=== PATIENT | male | born 1970 | race Caucasian/White ===

== ENCOUNTER → 2017-01-05 | Outpatient (CLI) | payer OTHER ==
[~2017-01-05] MED LIST: ALLE25CA OR; ATEN25TA PO; FLEXERIL OR; GEMF600T PO; LOSA100T36 PO; TYLENOL #3 OR; VOLT1GEL EX
[2017-01-05 17:33] LABS: ANION GAP 8 MEQ/L (8-16); BLOOD UREA NITROGEN 12 MG/DL (7-18); CARBON DIOXIDE LEVEL 26 MEQ/L (21-32); CHLORIDE LEVEL 107 MEQ/L (98-107); CREATININE FOR GFR 1.03 MG/DL (0.70-1.30); GLOMERULAR FILTRATION RATE > 60.0 (>60); GLUCOSE, FASTING 104 MG/DL (70-105); SODIUM LEVEL 141 MEQ/L (136-145)
== END ==
LOC: M LAB 16:27
PROVIDERS: ATTEND Nurse Practitioner Family
DX: Z01.812 Encounter for preprocedural laboratory examination (principal)

== ENCOUNTER 2017-01-14 20:51 | Emergency (ER) | payer OTHER ==
[~2017-01-14] VITALS: Ht 175.3 cm; Wt 96.6 kg
[2017-01-14 20:51] VITALS: BP 162/105
[~2017-01-14 20:51] MED LIST changes: -ACETAMINOPH W/CODEINE #3 TAB UD PO PRN; -CIPRODEX OTIC SUSP 7.5ML As Ordered ONE; -EPINEPHrine 1MG/ML INJ 30ML MD-VIAL As Ordered ONE; -GLYCOPYRROLATE INJ 0.2 MG/ML 2 ML VIAL As Ordered ONE; -HYDROmorphone HCL 2 MG/ML 1ML VIAL (J1170) As Ordered ONE; -LIDOCAINE 2% INJ 100 MG/5 ML SDV (FOR ANES.) As Ordered ONE; -LIDOCAINE W/EPINEPHRINE 1% 20ML VIAL As Ordered ONE; -LR 1,000 ML IV SCH; -MEPERIDINE INJ 25 MG/ML VIAL (J2175) IV PRN; -MIDAZOLAM INJ 2 MG/2 ML VIAL (J2250) As Ordered ONE; -MORPHINE 10 MG/ML 1ML VIAL IV PRN; -ONDANSETRON 4MG/2ML VIAL (J2405) IV PRN; -PERCOCET 5MG/325MG TAB PO PRN; -PHENYLEPHRINE INJ 10MG/ML VIAL (J2370) As Ordered ONE; -PHENYLephrine HCL 500 MCG/5 ML (100MCG/ML) SYRINGE (J2370) As Ordered ONE; -PROPOFOL 200 MG/20 ML VIAL As Ordered ONE; -REMIFENTANIL 1MG 3ML VIAL As Ordered ONE; -ROCURONIUM BROMIDE 50 MG/5 ML VIAL As Ordered ONE; -SEVOFLURANE INHAL SOLN 250 ML BTL As Ordered ONE; -dexameTHASONE 4 MG/ML 1ML VIAL (J1100) As Ordered ONE; -diphenhydrAMINE INJ 50MG/ML VIAL (J1200) IV PRN; -ePHEDrine SULFATE 25 MG/5 ML(5MG/ML) SYRINGE As Ordered ONE; -fentaNYL 100 MCG/2 ML INJECTION (J3010) IV PRN; -fentaNYL 250 MCG/5 ML INJECTION (J3010) As Ordered ONE
== END 2017-01-14 21:38 | disposition home or self-care (01) ==
LOC: M ED 21:12
DX: H95.51 Postprocedural hematoma of ear and mastoid process following a procedure on the ear and mastoid process (principal); I10 Essential (primary) hypertension; F17.210 Nicotine dependence, cigarettes, uncomplicated; J30.81 Allergic rhinitis due to animal (cat) (dog) hair and dander; Z88.6 Allergy status to analgesic agent; Z79.899 Other long term (current) drug therapy

== ENCOUNTER → 2017-01-14 | Day surgery (SDC) | payer OTHER ==
[~2017-01-14] VITALS: Ht 175.3 cm; Wt 97.5 kg
[~2017-01-14] MED LIST changes: +ACETAMINOPH W/CODEINE #3 TAB UD PO PRN; +ATOR40TA PO; +CIPRODEX OTIC SUSP 7.5ML As Ordered ONE; +CYCL10TA PO; +EPINEPHrine 1MG/ML INJ 30ML MD-VIAL As Ordered ONE; +GLYCOPYRROLATE INJ 0.2 MG/ML 2 ML VIAL As Ordered ONE; +HYDROmorphone HCL 2 MG/ML 1ML VIAL (J1170) As Ordered ONE; +LIDOCAINE 2% INJ 100 MG/5 ML SDV (FOR ANES.) As Ordered ONE; +LIDOCAINE W/EPINEPHRINE 1% 20ML VIAL As Ordered ONE; +LR 1,000 ML IV SCH; +MEPERIDINE INJ 25 MG/ML VIAL (J2175) IV PRN; +MIDAZOLAM INJ 2 MG/2 ML VIAL (J2250) As Ordered ONE; +MORPHINE 10 MG/ML 1ML VIAL IV PRN; +ONDANSETRON 4MG/2ML VIAL (J2405) IV PRN; +PERCOCET 5MG/325MG TAB PO PRN; +PHENYLEPHRINE INJ 10MG/ML VIAL (J2370) As Ordered ONE; +PHENYLephrine HCL 500 MCG/5 ML (100MCG/ML) SYRINGE (J2370) As Ordered ONE; +PROPOFOL 200 MG/20 ML VIAL As Ordered ONE; +REMIFENTANIL 1MG 3ML VIAL As Ordered ONE; +ROCURONIUM BROMIDE 50 MG/5 ML VIAL As Ordered ONE; +SEVOFLURANE INHAL SOLN 250 ML BTL As Ordered ONE; +dexameTHASONE 4 MG/ML 1ML VIAL (J1100) As Ordered ONE; +diphenhydrAMINE INJ 50MG/ML VIAL (J1200) IV PRN; +ePHEDrine SULFATE 25 MG/5 ML(5MG/ML) SYRINGE As Ordered ONE; +fentaNYL 100 MCG/2 ML INJECTION (J3010) IV PRN; +fentaNYL 250 MCG/5 ML INJECTION (J3010) As Ordered ONE
[2017-01-14 18:00] VITALS: BP 116/74
--- NOTE | 2017-01-15 00:31 | RO ---
DATE OF PROCEDURE: 01/14/2017 PREPROCEDURE DIAGNOSIS: Chronic left otitis media with cholesteatoma. POSTPROCEDURE DIAGNOSIS: Chronic left otitis media with cholesteatoma. PROCEDURE: Left tympanomastoidectomy with facial nerve monitor. SURGEON: Dr. Rian Garcia PROJECT FINANCIAL ANALYST: ANESTHESIA: FINDINGS: There was cholesteatoma, which was involving the posterior half of the tympanum all the way from the area of the incus all the way down to the floor of the tympanic space posteriorly. Anteriorly, it was clear. Malleus was clear. Stapes superstructure was intact. There was shortening, almost no long process, of incus. Incus was removed during the procedure. Facial nerve was monitored during the procedure, and it was intact and stimulated at the end of the procedure. DESCRIPTION OF PROCEDURE: Under general anesthesia with the patient intubated, the patient was prepped and draped in the usual manner. I cleaned the ear with Betadine and saline. There was a slight retraction in the pars flaccida region. I infiltrated the ear with the lidocaine with epinephrine. I made a posterior tympanotomy incision, then I lay tissue in the middle ear. The above findings were seen and the middle ear filled with cholesteatoma posteriorly. So, I made medial incisions and dissected the tissues posteriorly. Then, I made a postauricular incision down to the mastoid bone. Temporalis fascia was harvested. Once this was done, then I drilled down into the mastoid bone. Because of the extent of the cholesteatoma, I elected to take the canal wall down. So, I drilled down into the mastoid. The mastoid was free of disease. I then identified the horizontal semicircular canal and the tympanic plate. I then removed the posterior part of the canal wall and then identified the facial nerve in the middle ear space. I drilled down to the facial nerve, but I did not take the bone off of the facial nerve posteriorly. I then went between the facial nerve and the chorda tympani in a facial recess approach and then used this to gain access to the middle ear so that I was able to dissect out all of the cholesteatoma. There was no evident disease at the end of the procedure. There was a short nub of the chorda tympani. I took down the canal wall posteriorly. Once this was done, everything looked good. I irrigated the ear. I then put some Gelfoam in the middle ear space. I did remove the posterior inferior part of the tympanic membrane because it was stuck to the cholesteatoma. Then, I put some Gelfoam in the middle ear space and laid the graft on this and then returned the drum to its original position. I did a meatoplasty, removing some of the cartilage of posterior canal wall and sutured the posterior canal posteriorly. I then put foam gauze in the mastoid cavity. I closed the mastoid with #3-0 Vicryl and #3-0 Prolene. Patient tolerated the procedure well. The wound was dressed. The patient was extubated and transferred to the recovery room in excellent condition.
== END | disposition home or self-care (01) ==
LOC: M SDC 09:26
PROVIDERS: ATTEND Otolaryngology
DX: H65.22 Chronic serous otitis media, left ear (principal); H71.12 Cholesteatoma of tympanum, left ear; I10 Essential (primary) hypertension; F17.210 Nicotine dependence, cigarettes, uncomplicated; E78.00 Pure hypercholesterolemia, unspecified; M12.9 Arthropathy, unspecified; Z88.6 Allergy status to analgesic agent; Z91.09 Other allergy status, other than to drugs and biological substances; Z79.899 Other long term (current) drug therapy; Z98.1 Arthrodesis status
CPT/HCPCS: 69635; 88304; J1100; J1170; J2250; J2370; J3010

== ENCOUNTER → 2017-03-23 | Outpatient (CLI) | payer OTHER ==
[2017-03-23 12:36] LABS: ALBUMIN/GLOBULIN RATIO 1.14 (1.00-1.93); ALKALINE PHOSPHATASE 87 U/L (45-117); ALT/SGPT 37 U/L (12-78); ANION GAP 8 MEQ/L (8-16); AST/SGOT 32 U/L (15-37); BILIRUBIN,TOTAL 0.9 MG/DL (0.2-1.0); BLOOD UREA NITROGEN 18 MG/DL (7-18); CALCIUM LEVEL 9.6 MG/DL (8.5-10.1); CARBON DIOXIDE LEVEL 25 MEQ/L (21-32); CHLORIDE LEVEL 107 MEQ/L (98-107); CHOLESTEROL LEVEL 183 MG/DL (<200); CREATININE FOR GFR 1.02 MG/DL (0.70-1.30); GLOMERULAR FILTRATION RATE > 60.0 (>60); GLUCOSE, FASTING 107 MG/DL (70-105); POTASSIUM SERUM 4.4 MEQ/L (3.5-5.1); SODIUM LEVEL 140 MEQ/L (136-145); TOTAL PROTEIN 7.5 GM/DL (6.4-8.2); TRIGLYCERIDES LEVEL 245 MG/DL (<150)
== END ==
LOC: M LAB 10:40
PROVIDERS: ATTEND Nurse Practitioner Family
DX: E78.5 Hyperlipidemia, unspecified (principal)

== ENCOUNTER 2018-12-18 21:11 | Emergency (ER) | payer OTHER ==
[~2018-12-18] VITALS: Ht 175.3 cm; Wt 98.4 kg
[~2018-12-18 21:11] MED LIST changes: -ATOR40TA PO; +ATOR40TA75 PO; -GEMF600T PO; +GEMF600T5 PO; -LOSA100T36 PO; +LOSA100T50 PO
[2018-12-18] MEDS ORDERED: dexameTHASONE 20 MG/5 ML VIAL (J1100) IV ONE (22:00)
[2018-12-18] MEDS ORDERED: ACETAMINOPHEN 500 MG TAB PO ONE (22:00)
[2018-12-18] MEDS ORDERED: IPRATROPIUM 0.5MG/ALBUTEROL 2.5MG INH SOL UD 3ML (DUONEB)(J7620) NEB ONE (22:00)
[2018-12-18 22:31] LABS: INFLUENZA A AMPLIFICATION POSITIVE (NEGATIVE); INFLUENZA B AMPLIFICATION NEGATIVE (NEGATIVE)
[2018-12-18] MEDS ORDERED: OSEL75CA PO (23:09)
[2018-12-18] MEDS ORDERED: PRED20TA PO (23:09)
[2018-12-18 23:24] VITALS: BP 125/84
--- NOTE | 2018-12-19 08:34 | REP ---
Chest x-ray: Two views. History: Dyspnea. Comparison chest x-ray: September 01, 2016. Findings: A ventral discectomy and fusion plate is visible at the lower cervical spine as before. No other significant bony abnormality. The lungs are well inflated and clear. Heart size is normal. Pulmonary vasculature is not increased. Pleural angles are sharp. Impression: No acute disease. Electronically Signed by Saravanan Omer MD 12/19/2018 08:25 A
== END 2018-12-18 23:25 | disposition home or self-care (01) ==
LOC: M ED 21:11
DX: J09.X2 Influenza due to identified novel influenza A virus with other respiratory manifestations (principal); J20.9 Acute bronchitis, unspecified; I10 Essential (primary) hypertension; E78.00 Pure hypercholesterolemia, unspecified; J30.81 Allergic rhinitis due to animal (cat) (dog) hair and dander; Z72.0 Tobacco use; Z79.899 Other long term (current) drug therapy
CPT/HCPCS: 71046; 87502; 94640; 96374; 99284; J1100